=== PATIENT | male | born 1995 | race Caucasian/White ===

== ENCOUNTER → 2016-11-10 | Outpatient (CLI) | payer OTHER ==
--- NOTE | 2016-11-12 11:14 | SLEEPCENT ---
DATE OF PROCEDURE: 11/10/2016 REQUESTING PROVIDER: Ambreen Montes NP INTERPRETATION: Nocturnal polysomnography was performed for evaluation of sleep apnea syndrome symptoms in this patient with a history of excessive somnolence and morning headaches with nonrestorative sleep. 7 hours and 58 minutes of data were reviewed. There were 305 minutes of sleep identified. Sleep latency was prolonged at 30 minutes. Rapid eye movement (REM) latency was normal at 96 minutes. Sleep architecture was fair. There was a period of wake between midnight and 1:00 a.m. resulting in reduced sleep efficiency to 65.8%. Three REM periods were scored. The patient's electrocardiogram (EKG) showed a sinus rhythm with an average heart rate of 80 beats per minute. Electroencephalogram (EEG) showed reasonably normal waveforms for awake and sleep. There were only 14 respiratory events identified of 10 seconds in duration or greater for an apnea-hypopnea index of 2.7. The events seen were in the supine posture. Snoring was significant over the course of the study, and arousals from respiratory events when arousals from snoring were included occurred 4.5 times per hour. There were no significant oxygen desaturations appreciated. The remaining measures of sleep physiology were normal. Some minor limb activity was noted. Arousals occurred only 5.3 times per hour. IMPRESSION: Normal nocturnal polysomnography with significant snoring and respiratory related arousals 4.5. RECOMMENDATIONS: Interventions to optimize upper airway tone to reduce the patient's snoring problems should improve the quality of sleep. If problems persist or worsen, retesting has been shown to be more sensitive to identify mild apneic disease.
== END ==
LOC: M SLEEP 19:05
PROVIDERS: ATTEND Nurse Practitioner Adult Health
DX: R06.83 Snoring (principal)

== ENCOUNTER → 2017-01-17 | Outpatient (CLI) | payer OTHER ==
--- NOTE | 2017-01-20 07:37 | SLEEPCENT ---
DATE OF PROCEDURE: 01/17/2017 ORDERED BY: LEONOR Loco Nocturnal polysomnography was performed for evaluation of sleep apnea syndrome symptoms in this patient with a history of snoring and excessive somnolence. 7 hours and 24 minutes of data were reviewed. There were 400 minutes of sleep identified. Sleep latency was short at 7.5 minutes. Rapid eye movement (REM) was normal at 80 minutes. Sleep architecture showed fragmentation. There were 3 REM periods appreciated. Overall sleep efficiency 90.8%. The patient's EKG showed a sinus rhythm with an average heart rate of 78 beats per minute. EEG showed normal waveforms for awake and sleep. There were only 30 respiratory events identified of 10 seconds in duration or greater for an apnea hypopnea index of 4.5. The events were not exclusive to sleep stage but were much more frequent in the supine posture. Respiratory related arousals occurred 3.3 times per hour when arousals from snoring were included. Some limb activity was appreciated but no trains of events were clearly identifiable. Limb movement arousal index was 8.3. IMPRESSION: 1. Mild periodic limb movement disorder (G47.61). Limb movement arousal index is 8.3. 2. Snoring with respiratory disruption predominantly supine position. RECOMMENDATION: Sleep position retraining for avoidance of the supine posture should address the patient's respiratory disruption of sleep. Interventions to reduce the frequency arousal from limb activity are likely also to be helpful.
== END ==
LOC: M SLEEP 19:39
PROVIDERS: ATTEND Nurse Practitioner Adult Health
DX: G47.61 Periodic limb movement disorder (principal)